=== PATIENT | female | born 1960 | race Caucasian/White ===

== ENCOUNTER 2016-10-19 09:21 | Inpatient (IN) | payer MEDICARE, MEDICAID ==
[~2016-10-19] VITALS: Ht 162.6 cm; Wt 94.1 kg
[2016-10-19] MEDS ORDERED: SODIUM CHLORIDE FLUSH 10ML SYR IVF ONE ×3 (10:00→11:30)
[2016-10-19] MEDS ORDERED: MORPHINE SULFATE 4 MG/ML, 1ML IVPush PRN ×2 (10:00→13:00)
[2016-10-19] MEDS ORDERED: ONDANSETRON 2MG/ML, 2ML IVPush ONE (10:00)
[2016-10-19] MEDS ORDERED: MORPHINE SULFATE 4 MG/ML, 1ML ONE ×2 (10:06→11:45)
[2016-10-19] MEDS ORDERED: ONDANSETRON 2MG/ML, 2ML ONE ×2 (10:06→11:45)
[2016-10-19 11:00] LABS: DIFF TOTAL CELLS COUNTED 100 CELL DIFF
[2016-10-19] MEDS ORDERED: PIPERACILLIN/TAZO/PMX 3.375GM 50 ML IVPB ONE (11:00)
[2016-10-19] MEDS ORDERED: HYDROcodone/APAP 5/325 TABLET PO ONE (11:00)
[2016-10-19 11:01] LABS: ANISOCYTOSIS 1+; VERIFY COUNTS? YES
[2016-10-19 11:07] LABS: BLOOD UREA NITROGEN 131 mg/dL (7-18)
[2016-10-19 11:09] LABS: ASPARTATE AMINO TRANSFERASE 7 U/L (15-37)
[2016-10-19] MEDS ORDERED: LORazepam 2 MG/ML, 1ML IVPush ONE (11:30)
[2016-10-19] MEDS ORDERED: SODIUM CHLORIDE 0.9% 1,000ML IVBOLUS ONE (11:30)
[2016-10-19] MEDS ORDERED: PIPERACILLIN/TAZO/PMX 3.375GM 50 ML ONE (11:45)
[2016-10-19] MEDS ORDERED: SODIUM CHLORIDE 0.9%, 500ML IVBOLUS ONE (12:00)
[2016-10-19] MEDS ORDERED: LISI-167 PO (12:06)
[2016-10-19] MEDS ORDERED: POLYETHYLENE GLYCOL 17 GM PACKET PO PRN (13:00)
[2016-10-19] MEDS ORDERED: BISACODYL 10 MG SUPP PR PRN (13:00)
[2016-10-19] MEDS ORDERED: DOCUSATE 100 MG CAPSULE PO PRN (13:00)
[2016-10-19] MEDS ORDERED: ACETAMINOPHEN 325 MG TABLET PO PRN (13:00)
[2016-10-19] MEDS ORDERED: ONDANSETRON 2MG/ML, 2ML IVP PRN (13:00)
[2016-10-19 14:20] VITALS: BP 88/60
[2016-10-19] MEDS: HEPARIN 5,000 UNITS/ML, 1ML SQ SCH ×2 (14:45→21:59)
[2016-10-19] MEDS: SODIUM CHLORIDE 0.9% 1,000 ML IV SCH ×2 (14:47→21:59)
[2016-10-19 14:53] VITALS: BP 94/62
[2016-10-19 15:40] VITALS: BP 91/62
[2016-10-19] MEDS: INSULIN REGULAR 100 UNITS/ML, 3ML VIAL SQ-INSULIN SCH ×2 (16:00→21:00)
[2016-10-19 18:27] VITALS: BP 81/59
[2016-10-20 00:21] VITALS: BP 109/76
[2016-10-20 01:23] VITALS: BP 101/70
[2016-10-20 04:34] VITALS: BP 96/66
[2016-10-20] MEDS: HEPARIN 5,000 UNITS/ML, 1ML SQ SCH ×3 (04:38→19:54)
[2016-10-20] MEDS: SODIUM CHLORIDE 0.9% 1,000 ML IV SCH ×2 (04:38→10:20)
[2016-10-20 06:24] LABS: ASPARTATE AMINO TRANSFERASE 9 U/L (15-37)
[2016-10-20 06:30] LABS: BLOOD UREA NITROGEN 103 mg/dL (7-18)
[2016-10-20 06:31] LABS: DIFF TOTAL CELLS COUNTED 100 CELL DIFF
[2016-10-20 06:33] LABS: VERIFY COUNTS? YES
[2016-10-20 06:36] LABS: ANISOCYTOSIS 1+
[2016-10-20] MEDS: INSULIN REGULAR 100 UNITS/ML, 3ML VIAL SQ-INSULIN SCH ×2 (07:00→11:00)
[2016-10-20 07:43] VITALS: BP 89/60
[2016-10-20] MEDS: LACTATED RINGERS 1,000 ML IV SCH ×2 (12:00→19:54)
[2016-10-20] MEDS: MEROPENEM 500 MG in SODIUM CHLORIDE 0.9% 100 ML IV SCH (12:30)
[2016-10-20] MEDS: SODIUM BICARBONATE 650 MG TABLET PO SCH ×2 (12:38→19:54)
[2016-10-20 12:54] VITALS: BP 105/73
[2016-10-20] MEDS: HYDROcodone/APAP 5/325 TABLET PO PRN (20:11)
[2016-10-20 20:16] VITALS: BP 110/76
[2016-10-21 00:02] VITALS: BP 105/72
[2016-10-21] MEDS: MEROPENEM 500 MG in SODIUM CHLORIDE 0.9% 100 ML IV SCH ×3 (00:02→23:53)
[2016-10-21] MEDS: LACTATED RINGERS 1,000 ML IV SCH ×3 (03:22→21:03)
[2016-10-21 05:33] VITALS: BP 103/70
[2016-10-21] MEDS: HEPARIN 5,000 UNITS/ML, 1ML SQ SCH ×3 (05:39→21:03)
[2016-10-21 06:36] LABS: BLOOD UREA NITROGEN 78 mg/dL (7-18)
[2016-10-21 06:39] LABS: ASPARTATE AMINO TRANSFERASE 10 U/L (15-37)
[2016-10-21 06:43] LABS: DIFF TOTAL CELLS COUNTED 100 CELL DIFF
[2016-10-21 06:47] LABS: ANISOCYTOSIS 1+
[2016-10-21 06:48] LABS: VERIFY COUNTS? YES
[2016-10-21] MEDS ORDERED: PNEUMOCOCCAL 23 VACCINE IM-VACC ONE (08:30)
[2016-10-21] MEDS: SODIUM BICARBONATE 650 MG TABLET PO SCH ×2 (09:35→21:03)
[2016-10-21 09:47] VITALS: BP 103/74
[2016-10-21] MEDS ORDERED: ERGOCALCIFEROL 50,000 UNIT CAPSULE PO SCH (10:00)
[2016-10-21 12:00] VITALS: BP 101/70
[2016-10-21] MEDS ORDERED: MAGNESIUM SULFATE PMX 2GM/50ML 50 ML IV ONE (16:00)
[2016-10-21 20:00] VITALS: BP 109/75
[2016-10-21] MEDS: HYDROcodone/APAP 5/325 TABLET PO PRN (21:03)
[2016-10-22 02:00] VITALS: BP 105/69
[2016-10-22] MEDS: HEPARIN 5,000 UNITS/ML, 1ML SQ SCH ×3 (04:38→20:49)
[2016-10-22] MEDS: LACTATED RINGERS 1,000 ML IV SCH (04:39)
[2016-10-22 05:37] LABS: ASPARTATE AMINO TRANSFERASE 11 U/L (15-37); BLOOD UREA NITROGEN 61 mg/dL (7-18)
[2016-10-22 07:29] VITALS: BP 114/82
[2016-10-22] MEDS: MULTIVITAMIN 1 TABLET PO SCH (10:35)
[2016-10-22] MEDS: SODIUM BICARBONATE 650 MG TABLET PO SCH ×2 (10:37→20:49)
[2016-10-22] MEDS: MEROPENEM 500 MG in SODIUM CHLORIDE 0.9% 100 ML IV SCH (12:00)
[2016-10-22] MEDS ORDERED: TEMAZEPAM 15 MG CAPSULE PO PRN (12:30)
[2016-10-22 13:45] VITALS: BP 114/77
[2016-10-22 20:00] VITALS: BP 107/70
[2016-10-23 02:00] VITALS: BP 113/80
[2016-10-23] MEDS: HEPARIN 5,000 UNITS/ML, 1ML SQ SCH ×2 (05:11→13:00)
[2016-10-23 05:52] LABS: BLOOD UREA NITROGEN 49 mg/dL (7-18)
[2016-10-23] MEDS: MULTIVITAMIN 1 TABLET PO SCH (08:39)
[2016-10-23] MEDS: SODIUM BICARBONATE 650 MG TABLET PO SCH (08:39)
[2016-10-23 08:45] VITALS: BP 108/77
[2016-10-23] MEDS ORDERED: HYDR-3240 PO (10:53)
[2016-10-23] MEDS ORDERED: SODI650T PO (10:53)
[2016-10-23] MEDS ORDERED: POLY17PO5 PO (10:53)
[2016-10-23 14:17] VITALS: BP 106/74
== END 2016-10-23 15:05 | DRG 871 ==
LOC: ED 10:59 → EDIP 11:43 → 4WST 14:07
PROVIDERS: ADMIT Family Medicine; ATTEND Internal Medicine
PROC: 02HV33Z Insertion of Infusion Device into Superior Vena Cava, Percutaneous Approach (ICD-10-PCS; principal; 2016-10-19)
DX: A41.9 Sepsis, unspecified organism (principal); K85.90 Acute pancreatitis without necrosis or infection, unspecified; N17.0 Acute kidney failure with tubular necrosis; G93.41 Metabolic encephalopathy; E87.1 Hypo-osmolality and hyponatremia; K86.3 Pseudocyst of pancreas; I69.351 Hemiplegia and hemiparesis following cerebral infarction affecting right dominant side; D69.6 Thrombocytopenia, unspecified; E83.39 Other disorders of phosphorus metabolism; E86.1 Hypovolemia; F10.10 Alcohol abuse, uncomplicated; D64.9 Anemia, unspecified; F17.210 Nicotine dependence, cigarettes, uncomplicated; I11.9 Hypertensive heart disease without heart failure; R65.20 Severe sepsis without septic shock; Z66 Do not resuscitate; Z79.899 Other long term (current) drug therapy; Z82.49 Family history of ischemic heart disease and other diseases of the circulatory system; Z98.2 Presence of cerebrospinal fluid drainage device
CPT/HCPCS: 36415; 36556; 71010; 74176; 76770; 80048; 80053; 80061; 80307; 81001; 82306; 82436; 82570; 82728; 82962; 83036; 83540; 83550; 83605; 83690; 83735; 83935; 83970; 84100; 84133; 84145; 84156; 84300; 84443; 84466; 85025; 85610; 85651; 87040; 90732; 93005; 96365; 96366; J1644; J2185; J2405; J2543; J3475; J7030; J7040; J7120